=== PATIENT | male | born 1970 | race Caucasian/White ===

== ENCOUNTER 2016-05-28 13:45 | Emergency (ER) | payer OTHER ==
[2016-05-28] MEDS ORDERED: MORPHINE SULFATE 4 MG/1 ML IVP ONE (14:04)
[2016-05-28] MEDS ORDERED: DIPH,PERTUSS,TET(ADACEL) VAC/PF 0.5 ML (Tdap) IM ONE (14:04)
[2016-05-28] MEDS ORDERED: ONDANSETRON 4 MG/2 ML VIAL IVP ONE (14:04)
[2016-05-28] MEDS ORDERED: Sodium Chloride 0.9% 1,000 ML PRIMARY IV ONE (14:04)
--- NOTE | 2016-05-28 14:11 | PDOC ---
Lower Extremity Injury HPI - General Chief Complaint: Lower Extremity Problem/Injury Stated Complaint: R > L SHARP PAIN, HIT BY HEAVY CHAIN Date Seen by Provider: 05/28/16 Time Seen by Provider: 14:06 Source: POSITIVE: Patient Exam Limitations: POSITIVE: No limitations Nurse's Notes Reviewed & Considered: Yes - History of Present Illness Initial Comments: Patient comes in today with chief complaint of bilateral lower extremity pain. 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 The chain snapped tight striking him in the bilateral shins resulting in abrasion of his left anterior tibial ridge and laceration over the right. He has swelling and ecchymosis present bilaterally. He has good sensations and good strength distally good capillary refill distal palpable pulses bilaterally. He denies Having fallen and has no other injuries. Have you received a tetanus shot in the past 10 years?: Yes Body Location Affected: REPORTS: Lower Extremity (L), Lower Extremity (R) Timing: REPORTS: Abrupt Duration: 1 hour Severity: Moderate Quality: REPORTS: "Pain", Sharpness, Stabbing Location at Time of Onset: REPORTS: Work Context of Injury: REPORTS: Direct Blow Location of Injury: REPORTS: Other (Bilateral lower leg.) Modifying Factors: improves with: Movement, Rest Any Prior Injuries Related to Current Complaint?: No - Patient Home Medications Home Medications: Home Medications Levofloxacin 1 unit PO QD #10 tab 11/14/15 - Patient Allergies Allergies/Adverse Reactions: Allergies Allergy/AdvReac Type Severity Reaction Status Date / Time azithromycin Allergy RASH Verified 05/28/16 14:09 Past Medical History - heen HEENT History: Denies History Cardiovascular History: Denies History Respiratory History: Denies History Gastrointestinal History: Denies History Additional Genitourinary History: testicle pain began tody about 0800. Endocrine History: Denies History Musculoskeletal History: Denies History Neurological History: Denies History Blood Disorders: Denies History Psychiatric History: Denies History Cancer History: Other (please comment) Cancer Treatment / Date(s) of Treatment: 2006 History of MDRO: No Alcohol Use: Rarely Substance Use Type: None Previous Surgical History: Yes Type / Date of Surgery: Appy Anesthesia Reactions: No Malignant Hyperthermia: No Significant Family History: No pertinent family hx ROS - Limitations ROS Limitations: No Limitations Constitution: REPORTS: Denies Symptoms Cardiovascular: REPORTS: Denies Cardiac Symptoms Respiratory: REPORTS: Denies Resp Symptoms Neurological: REPORTS: Denies Neuro Symptoms Gastrointestinal: REPORTS: Denies GI Symptoms Endocrine: REPORTS: Denies Symptoms Musculoskeletal: REPORTS: Lower Extremity Swelling, Recent Injury Genitourinary: REPORTS: Denies Symptoms Eyes: REPORTS: Denies Symptoms ENT: REPORTS: Denies Symptoms Skin: REPORTS: Denies Skin Symptoms Lympathic: REPORTS: Denies Lympathic Symptoms Immunologic: POSITIVE: Denies Symptoms Psychiatric: POSITIVE: Denies Psych Symptoms Lower Ext Complaint Exam - General Appearance General Appearance: POSITIVE: Alert, Cooperative, No Acute Distress - Extremities Lower Extremity: POSITIVE: Normal ROM, Normal Color, Normal Temperature, No Joint Swelling, No Evidence of Ischemia, Stable, Soft Tissue Tenderness, Bony Tenderness, Swelling, Ecchymosis Gait: POSITIVE: Normal Neurovascular/Tendon: POSITIVE: Sensation Normal, Motor Normal, No Vascular Compromise Skin: POSITIVE: Warm, Dry - HEENT HEENT: POSITIVE: Head Inspection Nml, Eyes Inspection Nml, Ears Inspection Nml, Nose Inspection Nml, PERRL, EOMI - Neck / Back Neck/Back: POSITIVE: Normal Inspection - Respiratory / CVS Respiratory / CVS: POSITIVE: Chest Non Tender, No Ecchymosis, Breath Sounds Normal, No Respiratory Distress, Heart Sounds Normal, Regular Rate/Rhythm Peripheral Pulses: Dorsalis-pedis (R): 3+, Dorsalis-pedis (L): 3+ - Abdomen Abdomen: Soft: (All Quadrants), Normal Bowel Sounds: (All Quadrants), Denies Tenderness: (All Quadrants) Procedures - Laceration/Wound Repair Did patient have a laceration repair: Yes Site of Laceration/Wound: Right anterior tibial region. Wound Length (cm): 5.5 Wound's Depth, Shape: Into subcutaneous tissue Distal CMS: Yes Skin Prep: Betadine Prep Local Anesthesia Used - Indicate Amt Used in Comment: Lidocaine 1% with Epinephrine: Yes Wound Explored: No foreign body removed Wound Debrided: Minimal Wound Repaired With: Sutures single layer Suture Size/Type: 4:0, Ethilon Number of Sutures: 5 Sterile Dressing Applied?: Yes Splint Applied?: No Sling Applied?: No Lower Ext Complaint Progress - Results Reviewed by me Xrays/CTs/US Reviewed by me: Yes Discussed with Radiologist: No - Patient's Progress Pain Medication Addressed: POSITIVE: Yes Re-Examine Time:: 15:20 Status: POSITIVE: Improved MDM / ED Course: Patient was examined, an IV started, pain medication applied to his IV. His pain did improve. X-rays of his bilateral tib-fib were obtained, interpreted by me showing no acute osseous abnormalities. Assessment: Laceration of the right sharp. Laceration measures 5.5 cm. Of 5 interrupted horizontal mattress sutures were applied. Resulted in good skin edge reapproximation and good hemostasis. Bacitracin and sterile dressing were applied. Plan: Discharge home, Tylenol and ibuprofen when necessary, follow up with emergency department in 7 days for suture removal. - Consult Counseled: POSITIVE: Patient, Family, RE: Radiology Results, RE: DX Patient Care Time - Estimated PCT Patient Care Time (In Minutes): 45 Vital Signs - Recent Vital Signs Vital Signs: Vital Signs (Last 8 hours) Temp Pulse Resp BP Pulse Ox 05/28/16 13:45 97.2 F 80 18 129/80 94 - VS Reviewed Vital Signs Reviewed: Yes Discharge Clinical Impression: Laceration Discharge Disposition: Discharged to Home Condition: Good Patient Instructions Given at Discharge: Laceration (ED) Follow Up With: NONE,NONE [Primary Care Provider] -
[2016-05-28] MEDS ORDERED: LIDOCAINE HCL 1%/EPI 1:100,000 - 20 ML VIAL SUBCUT ONE (14:29)
[2016-05-28 14:43] VITALS: RESP 18; TEMP 97.2
[2016-05-28] MEDS ORDERED: NEOMYCIN/BACITRACIN/POLYMYXIN 0.9 GM OINT PACKET TOPICAL ONE (15:15)
--- NOTE | 2016-05-28 15:20 | DI ---
RIGHT TIBIA AND FIBULA, 05/28/2016 2:08 PM: Clinical History: Trauma. Previous Exam: None at this facility. 2 views are submitted. There is no acute soft tissue, osseous, or joint abnormality. Reading: Normal right tibia and fibula exam.
--- NOTE | 2016-05-28 15:20 | DI ---
LEFT TIBIA AND FIBULA, 05/28/2016 2:04 PM: Clinical History: Trauma. Previous Exam: None at this facility. 2 views are submitted. There is no acute soft tissue, osseous, or joint abnormality. Reading: Normal left tibia and fibula exam.
== END 2016-05-28 16:03 | disposition home or self-care (01) ==
LOC: ER 13:45
DX: S81.811A Laceration without foreign body, right lower leg, initial encounter (principal); S80.812A Abrasion, left lower leg, initial encounter; M79.662 Pain in left lower leg; W22.8XXA Striking against or struck by other objects, initial encounter; Y99.0 Civilian activity done for income or pay
CPT/HCPCS: 12002; 73590; 90471; 96361; 96374; 96375; 99283; J2270; J2405; J7030